=== PATIENT | male | born 1950 | race Hispanic/Latino ===

== ENCOUNTER 2020-08-02 23:16 | Emergency (ER) | payer MEDICARE ==
[~2020-08-02] VITALS: Ht 177.8 cm; Wt 99.8 kg
[2020-08-03] MEDS ORDERED: ASPIRIN 81 MG CHEW TAB PO ONE
[2020-08-03 00:07] LABS: BASOPHILS # (AUTO) 0.1 (0.0-0.1); BASOPHILS % 0.6 % (0.0-1.0); EOSINOPHILS # (AUTO) 0.2 (0.0-0.4); EOSINOPHILS % 1.9 % (0.0-6.0); HEMATOCRIT 45.3 % (38.2-49.6); HEMOGLOBIN 15.7 g/dL (14.0-18.0); LYMPHOCYTES # (AUTO) 3.7 (1.0-3.2); LYMPHOCYTES % 41.1 % (18.0-39.1); MEAN CORPUSCULAR HEMOGLOBIN 28.5 pg (28-32); MEAN CORPUSCULAR HGB CONC 34.7 g/dL (31-35); MEAN CORPUSCULAR VOLUME 82.2 fL (81-99); MONOCYTES # (AUTO) 0.7 (0.2-0.8); MONOCYTES % 7.2 % (4.4-11.3); NEUTROPHILS # (AUTO) 4.4 (2.1-6.9); PLATELET COUNT 237 x10e3/uL (140-360); RED BLOOD COUNT 5.51 x10e6/uL (4.3-5.7); RED CELL DISTRIBUTION WIDTH 12.7 % (11.7-14.4)
[2020-08-03 00:24] LABS: ALBUMIN 4.3 g/dL (3.5-5.0); ANION GAP 21.7 mmol/L (8-16); CALCIUM 9.1 mg/dL (8.4-10.2); CREATININE, SERUM 1.35 mg/dL (0.72-1.25); POTASSIUM 4.7 mmol/L (3.5-5.1)
[2020-08-03 00:31] LABS: CREATINE KINASE MB 0.8 ng/mL (0-5.0)
[2020-08-03] MEDS ORDERED: AZITHROMYCIN 500MG/NS 250 ML 250 ML IV STA (02:22)
[2020-08-03] MEDS ORDERED: ONDANSETRON HCL INJ 2MG/ML 2ML 2 MG/ML VIAL IV STA (02:22)
[2020-08-03] MEDS ORDERED: CEFTRIAXONE SOD 1 GM/NS 50 ML 50 ML IV ONE (02:30)
[2020-08-03] MEDS ORDERED: MORPHINE SULFATE INJ 4 MG/ML INJ 1ML IV PRN (02:30)
[2020-08-03] MEDS ORDERED: LIDOCAINE 4% PATCH TP SCH (02:30)
[2020-08-03] MEDS ORDERED: TYLENOL # 31 EA PO (04:13)
[2020-08-03] MEDS ORDERED: LIDOPATCH1 EACH TOP (04:13)
[2020-08-03] MEDS ORDERED: AZITHROMYCIN250 MG PO (04:13)
[2020-08-03 05:00] VITALS: BP 128/85
== END 2020-08-03 04:40 | disposition home or self-care (01) ==
LOC: ER 23:31
DX: R07.89 Other chest pain (principal); J18.9 Pneumonia, unspecified organism; R05 Cough; E11.65 Type 2 diabetes mellitus with hyperglycemia; I10 Essential (primary) hypertension
CPT/HCPCS: 36415; 71045; 80053; 82550; 82553; 84484; 85025; 93005; 99284; J0456; J0696; J2270; J2405